=== PATIENT | male | born 1955 | race Caucasian/White ===

== ENCOUNTER 2016-03-24 21:19 | Outpatient (CLI) | payer OTHER, MEDICARE ==
[~2016-03-24] VITALS: Ht 182.9 cm; Wt 99.8 kg
--- NOTE | ~2016-03-24 | HEMODYNAMI ---
PATIENT:WENDIE WRIGHT MEDICAL RECORD: [id number] : 51 [id number] ADMISSION DATE: 03/24/16 Generatedon:03/25/201615:02 Patient name: WENDIE WRIGHT Patient #: [id number] SSN: : 1955 Date of study: 03/25/2016 Page: Of Hemodynamic Procedure Report Patient Data Patient Demographics Procedure consent was obtained First Name: WENDIE Gender: Male Last Name: ADRIANA : 1955 Middle Initial: CONSTANTINO Age: 60 year(s) Patient #: [id number] Race: Unknown Additional ID: [id number] Contact details [address]: [address] [place] [address] [place] State: [place] City: [place] Zip code: [address] Past Medical History Allergies Allergen Reaction Date Comments Reported Other allergy 03/25/2016 statins,hmg,reductase inhibitor Admission Admission Data Admission Date: 03/24/2016 Admission Time: 23:11 Admit Source: Other Insurance Payor: Medicare, Room #: D.2108 Private health insurance Height (in.): 72 BSA: 2.22 (m2) Height (cm.): 182.88 BMI: 29.84 (kg/m2) Weight (lbs.): 220 Weight (kg.): 99.79 Lab Results Lab Result Date: 03/25/2016 Lab Result Time: 4:51 Biochemistry Name Units Result Min Max BUN mg/dl 16 --(---*)-- 7 18 Creatinine mg/dl 1.1 --(--*-)-- 0.6 1.3 CBC Name Units Result Min Max Hematocrit % 37.1 *-(----)-- 42 54 Hemoglobin g/dl 12.4 *-(----)-- 13.5 17.5 Procedure Procedure Types Cath Procedure Diagnostic Procedure LHC LHC w/Coronaries w/Grafts PCI Procedure Coronary Stent Initial Procedure Description Procedure Date Procedure Date: 03/25/2016 Procedure Start Time: 14:44 Procedure End Time: 14:59 Procedure Staff Name Function Travis Bolivar MD Performing Physician Andres Olson RT Scrub Zackary Hatch RN Nailing Machine Operator Automatic Clinton Rousseau RT Monitor Madelaine Crandall RN Nurse Procedure Data Cath Procedure Fluoroscopy Diagnostic fluoroscopy Total fluoroscopy Time: 4 time: 4 min min Diagnostic fluoroscopy Total fluoroscopy dose: dose: 1186 mGy 1186 mGy Contrast Material Contrast Material Type Amount (ml) Isovue 300 142 Entry Location Entry Primary Successful Side Size Upsize Upsize Entry Closure Succes sful Closure Location (Fr) 1 (Fr) 2 (Fr) Remarks Device Remarks Femoral Right 5 Fr 6 Fr Vascade artery Short Closure System Estimated blood loss: 10 ml Diagnostic catheters Device Type Used For End Catheter Placement Cordis 5Fr Pigtail Procedure Catheter (MP) Cordis 5Fr JL 4.0 Procedure Catheter (MP) Cordis 5Fr 3DRC Catheter Procedure (MP) Cordis Infinity 5Fr AR 2 Procedure MOD catheter Procedure Complications No complications Procedure Medications Medication Administration Route Dosage Oxygen NC 2 l/min Heparin Flush Bag added to field 2 bags (1000units/500ml NS) Lidocaine 2% added to field 20 Versed I.V. 1 mg Fentanyl I.V. 50 mcg Versed I.V. 1 mg Fentanyl I.V. 50 mcg Fentanyl I.V. 50 mcg Heparin Bolus I.V. 4000 units Hemodynamics Rest BSA: 2.22 (m2) HGB: 12.4 (g/dl) O2 Consumption: Estimated: 252.37 (ml/min) O2 Co nsumption indexed: Estimated:113.68 (ml/min/m) Heart Rate: 61 (bpm) Snapshots Pre Cath Intra NCS Post Cath Vital Signs Time Heart Resp SPO2 NIBP Rhythm Pain Sedation Rate (ipm) (%) (mmHg) Status Level (bpm) 14:36:38 59 14 100 119/68(82) NSR 0 (11) 10(A) , No pain 14:40:48 62 14 100 121/65(91) NSR 0 (11) 10(A) , No pain 14:45:02 55 15 100 105/61(83) NSR 0 (11) 9(A) , No pain 14:49:10 61 18 98 112/60(85) NSR 0 (11) 9(A) , No pain 14:53:18 65 16 99 130/64(94) NSR 0 (11) 9(A) , No pain 14:57:32 66 22 99 112/58(81) NSR 0 (11) 9(A) , No pain Medications Time Medication Route Dose Verified Delivered Reason Notes Effectiveness by by 14:37:59 Oxygen NC 2 Travis Madelaine Per physician l/min Katt Crandall RN 14:38:06 Heparin Flush added 2 Travis Travis used for Bag to bags Katt Bolivar MD procedure (1000units/500ml field NS) 14:38:12 Lidocaine 2% added 20ml Travis Travis used for to vial Katt Bolivar MD procedure field 14:42:08 Versed I.V. 1 mg Travis Madelaine for sedation Katt Crandall RN 14:42:12 Fentanyl I.V. 50 Travis Madelaine for sedation mcg Katt Crandall RN 14:45:04 Versed I.V. 1 mg Travis Madelaine for sedation Katt Crandall RN 14:45:06 Fentanyl I.V. 50 Travis Madelaine for sedation mcg Katt Crandall RN 14:47:17 Fentanyl I.V. 50 Travis Madelaine for sedation mcg Katt Crandall RN 14:51:33 Heparin Bolus I.V. 4000 Travis Madelaine for dose units Katt Crandall RN anticoagulation verified with dr bolivar Procedure Log Time Note 14:00:53 Zackary Hatch RN sent for patient. Start room use. 14:26:25 Informed consent obtained and on chart 14:27:48 ACC Patient presents with Unstable Angina CCS Anginal Class 3--Marked limitation of physical activity, angina occurs with ordinary activity.. 14:27:51 Diagnostic Cath status Elective 14:28:12 Time tracking: Regular hours 14:28:15 Plan of Care:Hemodynamics will remain stable., Cardiac rhythm will remain stable., Comfort level will be maintained., Respiratory function will remain adequate., Patient/ family verbilizes understanding of procedure., Procedure tolerated without complication., Recovers from procedure without complications.. 14:28:27 Patient received from Med II to CCL 1 Alert and oriented. Tansferred to table in Supine position. 14:28:37 Warm blankets applied, and shahida hugger turned on for patient comfort. 14:28:37 Correct patient and procedure confirmed by team. 14:28:38 ECG and BP/O2 sat monitors applied to patient. 14:32:40 Vital chart was started 14:37:59 Oxygen 2 l/min NC was given by Madelaine Crandall RN; Per physician; 14:38:06 Heparin Flush Bag (1000units/500ml NS) 2 bags added to field was given by Travis Bolivar MD; used for procedure; 14:38:12 Lidocaine 2% 20ml vial added to field was given by Travis Bolivar MD; used for procedure; 14:38:27 Baseline sample Acquired. 14:38:35 Rhythm: sinus rhythm 14:38:37 Full Disclosure recording started 14:38:57 H&P Date Dictated: 03/25/2016 Within 30 days and on chart.. 14:38:59 Pre-procedure instructions explained to patient. 14:38:59 Pre-op teaching completed and patient verbalized understanding. 14:39:01 Family in waiting room. 14:39:03 Patient NPO since Midnight. 14:39:41 Patient allergic to Other allergystatins,hmg,reductase inhibitor 14:39:43 Is the patient allergic to Iodine/contrast media? No. 14:39:46 Is patient on blood thinner?Yes 14:39:48 ACC The patient was administered the following blood thiners within the last 24 hours: ACCPlavix 14:39:52 Patient diabetic? No. 14:40:12 Previous problem with sedation/anesthesia? No ? 14:40:15 Snore? Yes 14:40:20 Sleep apnea? No 14:40:22 Deviated septum? No 14:40:29 Opens mouth fully? Yes 14:40:30 Sticks out tongue? Yes 14:40:34 Airway obstruction? No ? 14:40:39 Dentures? Yes in tight 14:40:46 Pre procedure: right dorsailis pedis pulse 1+ Palpable, but thready & weak; easily obliterated 14:40:48 Patient pain scale 0/10 ?. 14:40:54 IV patent on arrival in left hand with 0.9% NaCl at [facility]. 14:41:38 Lab Result : BUN 16 mg/dl 14:41:38 Lab Result : Hemoglobin 12.4 g/dl 14:41:38 Lab Result : Creatinine 1.1 mg/dl 14:41:38 Lab Result : Hematocrit 37.1 % 14:41:41 Lab results completed and on chart. 14:41:43 Right groin area was prepped with chlora-prep and draped in sterile fashion 14:41:44 Alarms reviewed by R. N. 14:41:44 Sharps counted by scrub and verified by R.N. 14:41:47 Use device set Femoral Dx 14:41:49 Tegaderm 4 x 4 opened to sterile field. 14:41:50 Acist Manifold opened to sterile field. 14:41:50 Acist Hand Control opened to sterile field. 14:41:52 Acist Syringe opened to sterile field. 14:41:52 Bag Decanter opened to sterile field. 14:41:53 Cardinal Cath Pack opened to sterile field. 14:41:53 Terumo 5Fr Chocorua Sheath opened to sterile field. 14:41:54 St Lalo 260cm J .035 wire opened to sterile field. 14:41:54 Cordis Infinity 5Fr Multipack catheter opened to sterile field. 14:42:01 --------ALL STOP TIME OUT------ 14:42:01 Final Timeout: patient, procedure, and site verified with staff and physician. All members of the team are in agreement. 14:42:02 Right groin site verified by team. 14:42:05 Physical assessment completed. ASA score P 2 - A patient with mild systemic disease as per Travis Bolivar MD. 14:42:08 Versed 1 mg I.V. was given by Madelaine Crandall RN; for sedation; 14:42:08 Sedation plan: IV Moderate Sedation Versed, Fentanyl 14:42:12 Fentanyl 50 mcg I.V. was given by Madelaine Crandall RN; for sedation; 14:44:54 Procedure started. 14:44:57 Local anesthetic to right femoral artery with Lidocaine 2% by Travis Bolivar MD.INITIAL ACCESS ONLY 14:45:04 Versed 1 mg I.V. was given by Maedlaine Crandall RN; for sedation; 14:45:05 A 5 Fr sheath was inserted into the Right Femoral artery 14:45:06 Fentanyl 50 mcg I.V. was given by Madelaine Crandall RN; for sedation; 14:45:10 A Cordis 5Fr Pigtail Catheter (MP) was advanced over the wire and used for Procedure. 14:45:12 LV gram done using CALDERÓN 14:45:14 Injector settings: Ml/sec: 10, Volume: 20, 14:45:19 EF : 50 % 14:45:20 Catheter exchanged over wire. 14:45:24 A Cordis 5Fr JL 4.0 Catheter (MP) was advanced over the wire and used for Procedure. 14:45:38 LCA angiography performed. 14:46:26 FNZ BasixCompak Inflation Kit opened to sterile field. 14:46:27 [place] Whisper J 300cm 0.014 guide wire opened to sterile field. 14:46:28 Terumo 6Fr Chocorua Sheath opened to sterile field. 14:46:36 Catheter exchanged over wire. 14:46:40 A Cordis 5Fr 3DRC Catheter (MP) was advanced over the wire and used for Procedure. 14:46:57 LUX to LAD angiography performed. 14:47:10 RCA angiography performed. 14:47:17 Fentanyl 50 mcg I.V. was given by Madelaine Crandall RN; for sedation; 14:47:44 Catheter exchanged over wire. 14:47:49 A Cordis Infinity 5Fr AR 2 MOD catheter was advanced over the wire and used for Procedure. 14:48:30 SVG to Diag angiography performed. 14:49:06 SVG to Circ angiography performed. 14:50:10 SVG to the RCA is closed 14:50:18 Catheter removed. 14:50:20 Proceeding to intervention. 14:50:35 Sheath upsized to a 6 Fr Short. 14:51:02 ACC PCI Site: [facility] has 90% stenosis. 14:51:04 ACC Pre-intervention OKSANA Flow is 1. 14:51:21 Cordis 6FR XBLAD 3.5 SH guide catheter opened to sterile field. 14:51:30 6 Fr xblad 3.5 sh guide catheter was inserted over the wire 14:51:33 Heparin Bolus 4000 units I.V. was given by Madelaine Crandall RN; for anticoagulation; dose verified with dr bolivar 14:51:41 whisper wire advanced. 14:51:44 Wire advanced across lesion. 14:53:31 Inflation Number: 1 A Medtronic Resolute 2.25 X 14 stent was prepped and advanced across the Mid CX. The stent was deployed at 13 SUNNY for 0:10 (min:sec). 14:53:39 Stent catheter was removed intact over wire. 14:55:25 Inflation Number: 1 A Medtronic Resolute 2.25 X 22 stent was prepped and advanced across the Prox CX. The stent was deployed at 13 SUNNY for 0:10 (min:sec). 14:56:27 Stent catheter was removed intact over wire. 14:56:28 Wire removed. 14:56:28 Guide catheter removed. 14:56:36 Vascade 6/7 Fr Closure Device opened to sterile field. 14:56:47 Sheath removed intact; hemostasis achieved with Vascade Closure System to the Right Femoral artery. 14:56:48 Procedure ended.(Physican Out) 14:57:05 Fluoroscopy time 04.00 minutes. 14:57:12 Fluoroscopy dose: 1186 mGy 14:57:12 Flurop Dose total: 1186 14:57:48 Contrast amount:Isovue 300 142ml. 14:57:49 Sharps counted by scrub and verified by R.N. 14:58:05 Insertion/operative site no bleeding no hematoma. 14:58:07 Post-op/insertion site Right Femoral artery dressed using a 4 x 4 and Tegaderm. 14:58:11 Post right femoral artery:stable, soft, clean and dry 14:58:13 Post Procedure Pulses reassessed and unchanged 14:58:15 Post-procedure physical assessment completed. ASA score P 2 - A patient with mild systemic disease as per Travis Bolivar MD. 14:58:18 Post procedure rhythm: unchanged. 14:58:21 Estimated blood loss: 10 ml 14:58:22 Post procedure instruction explained to patient.Patient verbalizes understanding. 14:58:23 Post procedure instruction explained to patient.Patient verbalizes understanding. 14:58:23 Patient needs reinforcement of post procedure teaching. 14:58:28 Procedure type changed to Cath procedure, Diagnostic procedure, LHC, LHC w/Coronaries w/Grafts, PCI procedure, Coronary Stent Initial 14:59:20 Procedure and supply charges have been captured, reviewed, submitted and are correct. 14:59:22 Procedure Complication : No complications 14:59:25 Vital chart was stopped 14:59:27 See physician's report for complete and final results. 14:59:29 Report given to PCU. 14:59:32 Patient transfered to PCU with Stretcher. 14:59:35 Procedure ended. 14:59:35 Full Disclosure recording stopped 15:00:58 ACC-PCI Only Patient was given prescriptions, or instructed by Travis Bolivar MD to start/continue the following medications upon discharge: Plavix 15:01:00 End room use (Document Last) 15:01:44 Admit Source: Other 15:01:48 Patient Height : 182.88 cm 15:01:58 Patient Weight : 99.79 kg 15:01:58 Insurance Payor : Private health insurance, Medicare Intervention Summary Intervention Notes Time ActionType Lesion and Equipment Action# Pressure Duration Attributes Used 14:53:31 Place stent Mid CX Medtronic 1 13 00:10 Resolute 2.25 X 14 stent 14:55:25 Place stent Prox CX Medtronic 1 13 00:10 Resolute 2.25 X 22 stent Device Usage Item Name Manufacture Quantity Catalog Hospital Part Current Minima l Lot# / Number Charge Number Stock Stock Serial# Code Tegaderm 4 1 [id number] [id number] 259196 5 x 4 Acist Acist 1 40815 688251 140483 234500 5 Manifold Medical Systems Inc Acist Hand Acist 1 16348 390460 913471 348455 5 Control Medical Systems Inc Acist Acist 1 02903 238907 199559 994752 20 Syringe Medical Systems Inc Bag Microtek 1 2002S 389956 72170 128998 5 Decanter Medical Inc. Cardinal Cardinal 1 [id number] 357785 87447 709989 5 Cath Pack Health Terumo 5Fr Terumo 1 [id number] 792809 496706 365130 [address] Lalo 1 031902 374154 519730 546017 30 260cm J .035 wire Cordis Cardinal 1 [id number] 398639 20873 767769 30 Infinity Health 5Fr Multipack catheter Cordis 5Fr Cardinal 1 [id number] 5 Pigtail Health Catheter (MP) Cordis 5Fr Cardinal 1 045158 5 JL 4.0 Health Catheter (MP) Merit Merit 1 [id number] 922068 875270 645004 15 BasixCompak Medical Inflation [place] 1 [id number] 652215 890504 346416 5 Whisper J Vascular 300cm 0.014 guide wire Terumo 6Fr Terumo 1 [id number] 952286 727053 837824 40 [place] Sheath Cordis 5Fr Cardinal 1 226770 5 3DRC Health Catheter (MP) Cordis Cardinal 1 [id number] 417743 697308 321907 20 Infinity Health 5Fr AR 2 MOD catheter Cordis 6FR Cardinal 1 [id number] 076717 682413 387397 3 XBLAD 3.5 Health SH guide catheter Medtronic Medtronic 1 [id number] 706380 955857 2 [id number] Resolute 2.25 X 14 stent Medtronic Medtronic 1 [id number] 767022 980879 4 [id number] Resolute 2.25 X 22 stent Vascade 08/25 Cardiva 1 [id number] 056138 545566 593389 5 Fr Closure Medical, Device Inc. Signature Audit [place] Stage Time Signature Unsigned Intra-Procedure 03/25/2016 Clinton Rousseau 3:02:52 PM RT(R) Signatures Monitor : Clinton Rousseau RT Signature : Date : Time : [place] [id number] [place] [address]
[~2016-03-24 21:19] MED LIST: HYDROCHLOROTHIA25 MG PO; LISINOPRIL5 MG PO; ROBAXIN-750750 MG PO; ULTRAM50 MG PO
[2016-03-24 22:04] LABS: BASOPHILS 0.1 % (0.0-2.0); EOSINOPHILS 4.1 % (0-7); HEMATOCRIT 37.7 % (42.0-54.0); HEMOGLOBIN 12.8 g/dL (13.5-17.5); IMMATURE GRANULOCYTES 0.1 % (0-5); LYMPHOCYTES 24.9 % (15-50); MCH 30.3 pg (26.0-34.0); MCV 89.1 fL (80.0-100.0); MEAN PLATELET VOLUME 9.7 fL (7.4-10.4); MONOCYTES 8.9 % (2-11); NEUTROPHILS 61.9 % (40-80); PLATELET COUNT 205 10x3/uL (130-400); RBC 4.23 10x6/uL (4.20-6.10); RDW 13.6 % (11.5-14.5); WBC 8.5 10x3/uL (4.8-10.8)
[2016-03-24 22:17] LABS: ALBUMIN 3.7 g/dL (3.4-5.0); ALKALINE PHOSPHATASE 53 U/L (46-116); ALT (SGPT) 25 U/L (10-68); BILIRUBIN - TOTAL 0.38 mg/dL (0.2-1.3); CALC OSMOLALITY 276 mosm/kg (275-300); CARBON DIOXIDE 33.3 mmol/L (21.0-32.0); CHLORIDE - SERUM 99 mmol/L (98-107); CREATININE - SERUM 1.2 mg/dL (0.6-1.3); GLUCOSE 139 mg/dL (74-106); POTASSIUM - SERUM 4.5 mmol/L (3.5-5.1); PROTEIN - SERUM 7.3 g/dL (6.4-8.2); SODIUM 137 mmol/L (136-145); UREA NITROGEN 14 mg/dL (7-18); eGFR NON AFRICAN AMERICAN 65 mL/min (90-120)
[2016-03-24 22:33] LABS: CHOL - HDL RATIO 4.8 ratio (2.3-4.9); CHOLESTEROL, TOTAL 218 mg/dL (0-200); CKMB 2.1 U/L (0.0-3.6); CREATINE KINASE 120 UL (21-232); HDL CHOLESTEROL 45 mg/dL (32-96); LDL CHOLESTEROL 139 mg/dL (0-100); LDL-HDL RATIO 3.1 ratio (1.5-3.5); TRIGLYCERIDE 171 mg/dL (30-200)
[2016-03-24 22:34] LABS: TROPONIN-I < 0.017 ng/mL (0.000-0.060)
[2016-03-25] MEDS ORDERED: HYDROCODON-ACE1 EAC7 PO (00:20)
[2016-03-25 00:38] VITALS: BP 151/70
--- NOTE | 2016-03-25 03:07 | NUR ---
PT RECEIVED FROM ER @ 00:15 VIA WHEELCHAIR WITH AT SIDE, AWAKE, ALERT, ORIENTED. PT DENIES CHEST PAIN, CHEST PRESSURE, PAIN RADIATING TO EXTREMITIES, NAUSEA, OR DIAPHORESIS AT THIS TIME. CONTINUE TO MONITOR CLOSELY. BED LOW, CALL LIGHT IN REACH, SIDE RAILS X 2, HOB 10 DEGREES.
[2016-03-25 05:26] VITALS: BP 151/70; BMI 29.9
--- NOTE | 2016-03-25 07:20 | NUR ---
RECIEVED REPORT ON PATIENT, PATIENT IS ALERT AND ORIENTED AT THIS TIME. PATIENT HAS A L HAND IV THAT IS SL AT THIS TIME. PATIENT IS SR ON MONITOR WITH A RATE OF 86. PATIENT IS AT BEDSIDE. PATIENT DENIES ANY NEEDS OR COMPLAINTS AT THIS TIME. BED LOW AND LOCKED. CALL LIGHT IN REACH. CPOC
[2016-03-25 08:00] VITALS: BP 118/62
[2016-03-25 08:22] LABS: BASOPHILS 0.3 % (0.0-2.0); EOSINOPHILS 4.4 % (0-7); HEMATOCRIT 37.1 % (42.0-54.0); HEMOGLOBIN 12.4 g/dL (13.5-17.5); IMMATURE GRANULOCYTES 0.3 % (0-5); LYMPHOCYTES 26.3 % (15-50); MCH 29.7 pg (26.0-34.0); MCHC 33.4 g/dL (31.0-37.0); MEAN PLATELET VOLUME 10.8 fL (7.4-10.4); MONOCYTES 10.8 % (2-11); NEUTROPHILS 57.9 % (40-80); PLATELET COUNT 218 10x3/uL (130-400); RBC 4.17 10x6/uL (4.20-6.10); RDW 13.5 % (11.5-14.5); WBC 7.7 10x3/uL (4.8-10.8)
[2016-03-25 08:25] LABS: ANION GAP 13.6 mmol/L (8-16); CALCIUM 10.1 mg/dL (8.5-10.1); CARBON DIOXIDE 26.3 mmol/L (21.0-32.0); CREATININE - SERUM 1.1 mg/dL (0.6-1.3); POTASSIUM - SERUM 3.9 mmol/L (3.5-5.1)
--- NOTE | 2016-03-25 09:15 | NUR ---
MORNING MEDICATION GIVEN, ASSESSMENT DONE. PATIENT DENIES ANY CHEST PAIN OR COMPLAINTS. CPOC
[2016-03-25 12:00] VITALS: BP 102/60
--- NOTE | 2016-03-25 12:22 | NUR ---
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
[2016-03-25 12:50] VITALS: Ht 182.9 cm; Wt 99.8 kg
--- NOTE | 2016-03-25 14:45 | NUR ---
PATIENT GONE TO [facility]. CPOC
[2016-03-25] MEDS ORDERED: PLAVIX75 MG PO (15:30)
--- NOTE | 2016-03-25 15:30 | NUR ---
PATIENT BACK FROM [facility]. PATIENT VSS. BP 110/68 HR 63 RR 18 02 SAT 98% ON 2L/MIN VIA NC. PATIENT RESTING, NAD NOTED. AT BEDSIDE. R GROIN SITE WNL, NO SIGNS OF HEMATOMA. CPOC
[2016-03-25] MEDS ORDERED: ASPIRIN81 MG PO (15:31)
[2016-03-25 16:00] VITALS: BP 91/51
--- NOTE | 2016-03-25 16:23 | HP ---
PATIENT: WENDIE WRIGHT MEDICAL RECORD: [id number] ACCOUNT: [id number] LOCATION:D. D.2108 : 51 ADMISSION DATE: 03/24/16 HISTORY AND PHYSICAL EXAMINATION DIAGNOSES: 1. Angina. 2. Coronary artery disease. 3. Status post coronary bypass graft surgery. 4. Previous percutaneous transluminal coronary angioplasty stent. 5. Hypertension. 6. Hyperlipidemia. HISTORY OF PRESENT ILLNESS: Mr. Wright presents with 2 days of chest pain. He has an extensive cardiac history of Coronary artery bypass graft surgery in 1999, PTCA stent in 2002. No chest pain until the last 2 days of pain that is worsening rapidly with episodes of rest pain, class III-IV unstable anginal symptomatology with radiation to his neck just like that of his previous angina. His EKG has nonspecific ST-T abnormalities. Troponin is normal; however, he continues to have episodes of chest pain. PHYSICAL EXAMINATION: GENERAL APPEARANCE: Well-nourished, well-developed, appears stated age. Level of distress, comfortable. PSYCHIATRIC: Mental status, alert, normal affect. Orientation, oriented to time, place and person. EYES: Lids and conjunctiva, noninjected. No discharge, no pallor. ENT: Lips, teeth, gums, normal dentition. Oropharynx, no cyanosis, no pallor. NECK: Carotid arteries, bilateral normal upstroke, no bruits, no thrills. JUGULAR VEINS: No jugular venous pressure or distention. CERVICAL LYMPH NODES: Nontender, nonenlarged. THYROID: Not enlarged. Nontender. No nodules. LUNGS: Respiratory effort, unlabored. CHEST: Normal curvature. No thoracic deformity. No chest wall tenderness. Percussion, resonant. Auscultation, clear. No wheezes, no rales, no rhonchi. CARDIOVASCULAR: Precordial exam, nondisplaced. No heaves or pericardial thrills. Rate and rhythm, regular. Heart sounds, normal S1, normal S2. No S3, no gallop, no rub. Systolic murmur, not heard. Diastolic murmur, not heard. EXTREMITIES: No cyanosis, no edema. Peripheral pulses, full and equal in all extremities, except as noted. No bruits appreciated. ABDOMEN: Soft, nondistended. Normal aorta. No bruit. Nontender. No masses. Liver, nontender, no hepatomegaly. Spleen, nontender, no splenomegaly. MUSCULOSKELETAL: No joint tenderness. No joint swelling. No erythema. NEUROLOGICAL: Normal gait, normal strength, normal tone. SKIN: Warm and dry. REVIEW OF SYSTEMS: The patient reports easy bruising but reports no swollen glands. The patient reports no fever, no night sweats, no significant weight gain, no significant weight loss. No significant exercise tolerance. The patient reports no dry eyes, no irritation, no vision change. Patient reports no difficulty hearing and no ear pain. Patient reports no frequent nose bleeds or nose and sinus problems. Patient reports on arm pain on exertion. No shortness of breath while lying down. No history of heart murmur. Patient reports no cough, no wheezing or coughing up blood. Patient reports no abdominal pain, no vomiting. Normal appetite. No diarrhea and not vomiting HISTORY AND PHYSICAL [id number] ADRIANA,PRESSLEY CONSTANTINO blood. No nausea and no constipation. Patient reports no incontinence. No difficulty urinating. No hematuria. No increased frequency. Patient reports no muscle aches. No weakness, no arthralgias, no back pain. No swelling of the extremities. Patient reports no abnormal mole, no jaundice, no rashes. Reports no loss of consciousness. No weakness and no numbness. No seizures, dizziness, or headaches. The patient reports no depression, no sleep disturbance, feeling safe in a relationship and no alcohol abuse. Patient reports on fatigue. Reports no runny nose or sinus pressure. No itching, no hives, and no frequent sneezing. OVERALL IMPRESSION: Chest pain compatible with angina and past history of coronary artery disease. We will proceed with coronary angiography. Further care depends upon findings of the angiography. TRANSINT:[id number] Voice Confirmation ID: [id number] DOCUMENT ID: [id number] HERMELINDO RUIZ MD at 1623 CC: [id number] DICTATION DATE: 03/25/16819 WHOLESALE ACCOUNT EXECUTIVE: 03/25/[address] [facility] [place] [id number] [place] [address]
--- NOTE | 2016-03-25 17:00 | NUR ---
PATIENT R GROIN WNL, NO SIGNS OF HEMATOMA. VSSS, PATIENT EATING DINNER. AT BEDSIDE. CPOC
--- NOTE | 2016-03-25 18:46 | NUR ---
patient iv dc with cath tip intact. patient given dc instructions and paperwork. plavix prescription given. patient denies any questions. patient ready for dc
--- NOTE | 2016-04-02 11:11 | OP ---
PATIENT NAME: WENDIE WRIGHT MEDICAL RECORD: [id number] :51 LOCATION:D.OPS ADMISSION DATE: SURGEON: HERMELINDO RUIZ MD DATE OF OPERATION: 03/25/2016 PROCEDURES: 1. PTCA stent, left circumflex. 2. Left heart catheterization. 3. Selective coronary angiography. 4. Left ventriculogram. 5. Vein graft angiography. 6. LUX angiography. INDICATION: Angina and coronary artery disease. PROCEDURE IN DETAIL: After informed consent was obtained and after detailed explanation of risks, benefits as well as alternative therapies, the patient elected to proceed with angiogram and angioplasty. The right femoral area was prepped and draped in normal sterile fashion. The right femoral artery was cannulated via modified Seldinger technique with placement of 6-Vietnamese sheath. All catheters exchanged through this sheath. FINDINGS: Left ventriculogram was performed in the standard 30-degree CALDERÓN view reveals preserved cardiac wall motion, ejection fraction estimated at 55%. SELECTIVE CORONARY ANGIOGRAPHY: 1. Left main showed no significant angiographic disease. 2. Left anterior descending is totally occluded in the mid vessel. 3. LUX to the LAD is widely patent. 4. Vein graft to the LAD diagonal is widely patent. 5. Left circumflex has a high-grade stenosis of the first obtuse marginal. The circumflex itself has 2 areas of 90% stenosis. These are the important ____ feeds the left to right collaterals to the total occlusion of the RCA on the right side. 6. The vein graft to the obtuse marginal is widely patent. 7. Right coronary artery is totally occluded. 8. Vein graft to the right coronary artery is totally occluded. PERCUTANEOUS TRANSLUMINAL CORONARY ANGIOPLASTY STENT OF THE LEFT CIRCUMFLEX: Stents used were 2.25 x 14 and 2.25 x 22, both Resolute stents. Result was 0% residual stenosis. OVERALL IMPRESSION: Successful percutaneous transluminal coronary angioplasty stent of the left circumflex feeding left to right collaterals to the distal right coronary artery going from 90% initial stenosis times 2 to 0% residual. TRANSINT:[id number] Voice Confirmation ID: [id number] DOCUMENT ID: [id number] OPERATIVE REPORT [id number] WENDIE WRIGHT HERMELINDO CRAWFORD MD at 1111 CC: [id number] DICTATION DATE: 03/25/16 1503 PATHOLOGY COLLECTOR: 03/25/16 1740 DEP CLI 03/25/16 [facility] [address] [place] [address]
== END 2016-03-25 19:06 | disposition home or self-care (01) ==
LOC: OBSVTIME → D.OPS 21:19 → D.ER 21:19 → D.M2 22:38 → D.ER 23:11 → OBSVTIME 23:12 → EDSTATUS 03-25 10:15 → D.OPS 03-25 19:06 → D.M2 03-25 19:06
PROVIDERS: Emergency Medicine; Internal Medicine Interventional Cardiology
DX: I25.119 Atherosclerotic heart disease of native coronary artery with unspecified angina pectoris (principal); Z95.1 Presence of aortocoronary bypass graft; Z95.5 Presence of coronary angioplasty implant and graft; I10 Essential (primary) hypertension; E78.5 Hyperlipidemia, unspecified

== ENCOUNTER → 2019-02-02 08:30 | Outpatient (CLI) | payer OTHER ==
[2016-03-25 12:50] VITALS: BMI 29.8
[~2019-02-02 08:30] MED LIST changes: +ASPIRIN81 MG PO; +HYDROCODON-ACE1 EAC7 PO; +PLAVIX75 MG PO
--- NOTE | 2019-02-06 14:43 | EC ---
PATIENT:WENDIE WRIGHT DATE OF SERVICE: 02/02/19 SEX: M MEDICAL RECORD: [id number] DATE OF : 51 LOCATION:[facility] AGE OF PATIENT: 63 ADMISSION DATE: 02/02/19 REFERRING PHYSICIAN: INTERPRETING PHYSICIAN: MAUDE NOLASCO MD ECHOCARDIOGRAM REPORT ECHO CHARGES 4 ECHO COMPLETE Date: 02/02/19 CLINICAL DIAGNOSIS: ABNORMAL EKG H/O HTN/CAD ECHOCARDIOGRAPHIC MEASUREMENTS (adult normal given) AC root (d.<3.7cm) 3.3 cm LV Septum d (<1.2 cm> 0.8 cm Valve Excursion 2.1 cm LV Septum (systole) 1.4 cm Left Atria (s.<4.0cm> 4.8 cm LVPW d(<1.2cm) 1.1 cm RV (d.<2.3cm) 2.7 cm LVPW (sytole) 1.7 cm LV diastole(<5.6CM) 5.8 cm MV E-F(>70mm/sec) cm LV systole 3.7 cm LVOT Diameter 2.3 cm MV exc.(>10mm) cm Est.ejection fraction (50-75%) % DOPPLER: LVIT cm/sec A 60.0 cm/sec E 84.0 cm/sec LA cm/sec RVSP 15.0 mmHg LVOT 86.0 cm/sec AOP1/2T m/s Asc. Ao 113 cm/sec RVOT 70.0 cm/sec RA cm/sec PA 106 cm/sec AV Gradient Peak 5.2 mmHg AV Mean 2.9 mmHg AV Area 2.9 cm MV Gradient Peak 3.7 mmHg MV Mean 1.9 mmHg MV Area cm COMMENTS: OP - HC Solar Site Assessment Specialist: 1 ALVINA AURELIA Well Puller: 3 Dr. Caceres TAPE# PACS Pericardial Effusion N DATE OF SERVICE: Adequate 2D, color flow, spectral Doppler, and M-mode. No LVH. LV internal dimensions are normal. Wall motion is normal. EF is greater than or equal to 55%. Aortic valve is tricuspid. No evidence of stenosis by Doppler interrogation. Left atrium is dilated at 4.8 cm. Mitral valve shows no prolapse. Trace MR. Right-sided chambers grossly normal. Trace TR. TRANSINT:[id number] Voice Confirmation ID: [id number] DOCUMENT ID: [id number] ECHOCARDIOGRAM REPORT [id number] WENDIE WRIGHT,MAUDE Gerardo MD at 1443 CC: [id number] DICTATION DATE: 02/06/19 1303 ASSOCIATE QUALITY ENGINEER: 02/06/19 1357 DEP CLI 02/02/19 [place] [id number] [place] [id number]
== END | disposition home or self-care (01) ==
LOC: D.HCCECHO 08:30
PROVIDERS: ATTEND Internal Medicine Interventional Cardiology
DX: I08.1 Rheumatic disorders of both mitral and tricuspid valves (principal)